=== PATIENT | male | born 1960 | race Caucasian/White ===

== ENCOUNTER 2018-05-26 14:48 | Inpatient (IN) | payer MEDICARE ==
[~2018-05-26] VITALS: Ht 167.6 cm; Wt 84.0 kg
[~2018-05-26 14:48] MED LIST: AMLO10TA80 PO; ASPI-1159 PO; ATOR40TA70 PO; BENZ1TAB7 PO; CARB200T PO; HALDOL PO; LISI-604 PO; OLAN10TA19 PO
[2018-05-26] MEDS ORDERED: NITROGLYCERIN 0.4MG TABLET SL SL PRN (16:00)
[2018-05-26] MEDS ORDERED: ASPIRIN 81MG TABLET PO ONE (16:00)
[2018-05-26 17:03] LABS: BASOPHILS % 0.6 % (0.0-2.0); CHLORIDE 95 mEq/L (98-107); EOSINOPHILS % 1.9 % (0.0-5.0); HEMATOCRIT. 41.6 % (42.0-52.0); HEMOGLOBIN. 14.5 g/dL (14.0-18.0); LYMPHOCYTES % 11.2 % (20.0-50.0); MEAN CORPUSCULAR VOLUME 88.9 fL (80.0-94.0); MEAN PLATELET VOLUME 7.1 fl (7.4-10.4); NEUTROPHILS % 81.3 % (40.0-76.0); PLATELET 381 x1000/uL (130-400); RED BLOOD CELL COUNT 4.68 mill/uL (4.7-6.1); RED CELL DISTRIBUTION WIDTH 12.4 % (11.6-14.6)
[2018-05-26 22:33] VITALS: BP 195/118
[2018-05-26 22:34] VITALS: BP 195/118
[2018-05-26] MEDS ORDERED: ACETAMINOPHEN 325MG TABLET PO PRN (23:00)
[2018-05-26] MEDS ORDERED: CLONIDINE 0.2MG TABLET PO PRN (23:00)
[2018-05-26] MEDS ORDERED: TEMAZEPAM 15MG CAPSULE PO PRN (23:00)
[2018-05-26] MEDS ORDERED: POTASSIUM CHLORIDE 20MEQ TABLET SR PO NR (23:00)
[2018-05-26] MEDS: LISINOPRIL 20MG TABLET PO SCH (23:17)
[2018-05-26] MEDS: AMLODIPINE 10MG TABLET PO SCH (23:17)
[2018-05-27] MEDS ORDERED: CEFTRIAXONE 1 G PREMIX 50 ML IV NR (01:00)
[2018-05-27] MEDS: HYDROCODONE/ACETAMINOPHEN 5/325MG TABLET PO PRN ×2 (01:50→08:26)
[2018-05-27 03:28] LABS: CLARITY URINE CLEAR (CLEAR); COLOR URINE YELLOW (YELLOW); KETONES URINE NEGATIVE (NEGATIVE); LEUKOCYTE ESTERASE URINE NEGATIVE (NEGATIVE); NITRITE URINE NEGATIVE (NEGATIVE); OCCULT BLOOD URINE NEGATIVE (NEGATIVE); PROTEIN URINE TRACE (NEGATIVE); SPECIFIC GRAVITY URINE 1.006 (1.005-1.030); UROBILINOGEN URINE 0.2 E.U./dL (0.2-1.0)
[2018-05-27 04:00] VITALS: BP 114/72
[2018-05-27 06:05] LABS: HEMATOCRIT. 41.2 % (42.0-52.0); HEMOGLOBIN. 14.6 g/dL (14.0-18.0); MEAN CORPUSCULAR HEMOGLOBIN 31.3 pg (28.0-32.0); MEAN CORPUSCULAR VOLUME 88.6 fL (80.0-94.0); PLATELET 390 x1000/uL (130-400); RED BLOOD CELL COUNT 4.65 mill/uL (4.7-6.1); RED CELL DISTRIBUTION WIDTH 12.5 % (11.6-14.6)
[2018-05-27 06:19] LABS: CHLORIDE 98 mEq/L (98-107)
[2018-05-27] MEDS ORDERED: MORPHINE SULFATE 2 MG/ML CPJ (NOT FOR IM USE) IV PRN (07:45)
[2018-05-27 08:00] VITALS: BP 128/66
[2018-05-27] MEDS: LISINOPRIL 20MG TABLET PO SCH (08:26)
[2018-05-27] MEDS: AMLODIPINE 10MG TABLET PO SCH (08:26)
[2018-05-27] MEDS ORDERED: ENOXAPARIN 40MG/0.4ML SYR SUBCUT SCH (09:00)
[2018-05-27] MEDS ORDERED: INFLUENZA VIRUS VACCINE(AFLURIA) 0.5ML SYR IM ONE (10:00)
[2018-05-27 11:57] VITALS: BP 115/72
[2018-05-27] MEDS ORDERED: POTASSIUM CHLORIDE 20MEQ TABLET SR PO NR (14:30)
[2018-05-27 16:00] VITALS: BP 100/63
[2018-05-27 17:00] VITALS: BP 100/63
[2018-05-27] MEDS ORDERED: CEFTRIAXONE 1 G PREMIX 50 ML IV SCH (21:00)
[2018-05-28 11:13] LABS: CANNABINOID URINE SCREEN NEGATIVE (NEGATIVE); OPIATES URINE SCREEN NEGATIVE (NEGATIVE); PHENCYCLIDINE URINE SCREEN NEGATIVE (NEGATIVE)
[2018-05-28 11:14] LABS: *AMPHETAMINES SCREEN URINE NEGATIVE (NEGATIVE); *BARBITURATES SCREEN URINE NEGATIVE (NEGATIVE); *BENZODIAZEPINES SCREEN URINE NEGATIVE (NEGATIVE); *COCAINE SCREEN URINE NEGATIVE (NEGATIVE)
[2018-05-28 11:39] LABS: METHADONE URINE SCREEN NEGATIVE (NEGATIVE)
== END 2018-05-27 17:20 | disposition home or self-care (01) | DRG 351 ==
LOC: ER 14:48 → EDBEDREQ 17:57 → ENRESERV 20:07 → 6WST 21:48
PROVIDERS: ADMIT Internal Medicine; ATTEND Internal Medicine
DX: M79.604 Pain in right leg (principal); D72.829 Elevated white blood cell count, unspecified; E87.6 Hypokalemia; R07.89 Other chest pain; E86.0 Dehydration; E78.00 Pure hypercholesterolemia, unspecified; I10 Essential (primary) hypertension; F99 Mental disorder, not otherwise specified; E78.5 Hyperlipidemia, unspecified; Z86.73 Personal history of transient ischemic attack (TIA), and cerebral infarction without residual deficits
CPT/HCPCS: 36415; 71045; 71110; 72192; 73502; 80305; 84484; 85007; 85027; 85379; 87077; 87186; 93005; 93880; 93970; 97162; 99291; J0696; J1650; J7040

== ENCOUNTER 2018-12-31 02:00 | Emergency (ER) | payer MEDICARE ==
[~2018-12-31] VITALS: Ht 167.6 cm; Wt 77.0 kg
[~2018-12-31 02:00] MED LIST changes: -ASPI-1159 PO; -LISI-604 PO
[2018-12-31 03:24] LABS: BASOPHILS % 0.6 % (0.0-2.0); EOSINOPHILS % 1.7 % (0.0-5.0); HEMATOCRIT. 39.3 % (42.0-52.0); HEMOGLOBIN. 13.8 g/dL (14.0-18.0); LYMPHOCYTES % 15.2 % (20.0-50.0); MEAN CORPUSCULAR HEMOGLOBIN 31.6 pg (28.0-32.0); MEAN PLATELET VOLUME 7.4 fl (7.4-10.4); MONOCYTES % 9.4 % (2.0-8.0); NEUTROPHILS % 73.1 % (40.0-76.0); PLATELET 347 x1000/uL (130-400); RED BLOOD CELL COUNT 4.36 mill/uL (4.7-6.1); RED CELL DISTRIBUTION WIDTH 12.8 % (11.6-14.6)
[2018-12-31 03:36] LABS: CHLORIDE 105 mEq/L (98-107)
[2018-12-31 03:39] LABS: ETHANOL BLOOD < 10 mg/dL
[2018-12-31 03:52] LABS: CLARITY URINE CLEAR (CLEAR); COLOR URINE YELLOW (YELLOW); KETONES URINE TRACE (NEGATIVE); LEUKOCYTE ESTERASE URINE NEGATIVE (NEGATIVE); NITRITE URINE NEGATIVE (NEGATIVE); OCCULT BLOOD URINE NEGATIVE (NEGATIVE); PROTEIN URINE 2+ (NEGATIVE); SPECIFIC GRAVITY URINE 1.024 (1.005-1.030)
[2018-12-31] MEDS ORDERED: CLONIDINE 0.1MG TABLET PO SCH (04:00)
[2018-12-31 04:02] LABS: *BARBITURATES SCREEN URINE NEGATIVE (NEGATIVE); *BENZODIAZEPINES SCREEN URINE NEGATIVE (NEGATIVE)
[2018-12-31 04:03] LABS: *AMPHETAMINES SCREEN URINE NEGATIVE (NEGATIVE); *COCAINE SCREEN URINE NEGATIVE (NEGATIVE); CANNABINOID URINE SCREEN NEGATIVE (NEGATIVE); METHADONE URINE SCREEN NEGATIVE (NEGATIVE); OPIATES URINE SCREEN NEGATIVE (NEGATIVE); PHENCYCLIDINE URINE SCREEN NEGATIVE (NEGATIVE)
[2018-12-31 07:08] VITALS: BP 154/95
== END 2018-12-31 07:09 | disposition home or self-care (01) ==
LOC: ER 02:00
DX: F29 Unspecified psychosis not due to a substance or known physiological condition (principal); M54.2 Cervicalgia; M54.9 Dorsalgia, unspecified; I10 Essential (primary) hypertension; F17.210 Nicotine dependence, cigarettes, uncomplicated; R62.50 Unspecified lack of expected normal physiological development in childhood; V03.90XA Pedestrian on foot injured in collision with car, pick-up truck or van, unspecified whether traffic or nontraffic accident, initial encounter; Y93.89 Activity, other specified; Y92.410 Unspecified street and highway as the place of occurrence of the external cause
CPT/HCPCS: 36415; 70450; 71045; 72100; 72125; 80048; 80305; 80320; 81003; 85025; 99284; Z7610; G0480

== ENCOUNTER 2022-03-08 10:11 | Emergency (ER) | payer MEDICAID ==
[~2022-03-08] VITALS: Ht 167.6 cm; Wt 72.0 kg
[~2022-03-08 10:11] MED LIST changes: -OLAN10TA19 PO; +OLAN10TA72 PO
[2022-03-08 10:25] VITALS: BP 131/90
[2022-03-08] MEDS ORDERED: TETRACAINE 0.5% OPHTH DROPS 4ML BOTHEYE ONE (11:45)
[2022-03-08] MEDS ORDERED: FLUORESCEIN SODIUM 1MG/STRIP BOTHEYE ONE (11:45)
[2022-03-08] MEDS ORDERED: TIMOLOL MALEATE 0.5% OPHTH DROPS 5ML EACHEYE SCH (12:15)
[2022-03-08] MEDS ORDERED: ACETAZOLAMIDE 500MG ER CAPSULE PO ONE (12:15)
[2022-03-08] MEDS ORDERED: ACETAZOLAMIDE SODIUM 500MG/VIAL IV ONE (12:30)
[2022-03-08] MEDS ORDERED: TIMO5DRO27 LEFTEYE (13:16)
[2022-03-08] MEDS ORDERED: OFLO5DRO3 EACHEYE (13:18)
== END 2022-03-08 14:02 | disposition home or self-care (01) ==
LOC: ER 10:24
DX: H40.20X0 Unspecified primary angle-closure glaucoma, stage unspecified (principal); E78.00 Pure hypercholesterolemia, unspecified; I10 Essential (primary) hypertension
CPT/HCPCS: 96374; 99283; J1120